=== PATIENT | female | born 1990 | race Caucasian/White ===

== ENCOUNTER 2024-06-10 12:25 | Emergency (ER) | payer SELFPAY ==
[~2024-06-10] VITALS: Ht 152.4 cm; Wt 77.0 kg
[2024-06-10 13:09] VITALS: BP 136/69
[2024-06-10 13:15] VITALS: BP 103/68
[2024-06-10 13:28] LABS: URINE BILIRUBIN - DIPSTICK Negative (NEGATIVE); URINE BLOOD DIPSTICK Negative (NEGATIVE); URINE GLUCOSE - DIPSTICK Negative (NEGATIVE); URINE KETONE Negative (NEGATIVE); URINE LEUK ESTERASE Negative (NEGATIVE); URINE NITRITE - DIPSTICK Negative (Negative); URINE PROTEIN - DIPSTICK Negative (NEG-TRACE); URINE UROBILINOGEN - DIPSTICK 0.2 E.U./dL (0.2)
[2024-06-10 13:30] VITALS: BP 122/79
[2024-06-10 13:35] LABS: URINE COLOR Yellow
[2024-06-10 13:46] VITALS: BP 131/71
[2024-06-10 14:01] VITALS: BP 148/83
[2024-06-10] MEDS ORDERED: metroNIDAZOLE 500 MG/TAB PO ONE (14:55)
[2024-06-10] MEDS ORDERED: ONDANSETRON 4 MG/TAB ODT PO ONE (14:55)
[2024-06-10] MEDS ORDERED: METRONIDAZOL0.751 EX (14:57)
[2024-06-10] MEDS ORDERED: METRONIDAZOLE500 MG PO (15:13)
[2024-06-10 15:27] VITALS: BP 148/83
== END 2024-06-10 15:27 | disposition home or self-care (01) | DRG 759 ==
LOC: ED 12:25
PROVIDERS: Emergency Medicine
DX: A59.01 Trichomonal vulvovaginitis (principal); N76.0 Acute vaginitis; I10 Essential (primary) hypertension; Z72.0 Tobacco use